=== PATIENT | male | born 1940 | race Caucasian/White ===

== ENCOUNTER 2017-02-12 13:07 | Emergency (ER) | payer OTHER ==
[2017-02-12 13:31] VITALS: RESP 20; TEMP 99.3
[2017-02-12] MEDS ORDERED: IPRATROPIUM/ALBUTEROL 3 ML DEYVIAL IH ONE ×2 (13:50→15:47)
--- NOTE | 2017-02-12 13:50 | UCPHY ---
H & P Patient Type: Established Time Seen by Provider: 02/12/17 13:18 HPI/ROS: CHIEF COMPLAINT: Low oxygen History by patient and his HISTORY OF PRESENT ILLNESS: 77-year-old male with a history of COPD who has been on home oxygen but only uses it intermittently presents today because over the past 2 weeks his oxygen saturation has been in the low 70s. His called to make an appointment with his primary care physician and he was referred here. Patient states that his oxygen will go up and down even when he is at rest and it has been as low as 71% when he wakes up in the morning. He does not sleep with his oxygen at night regularly. He notes that with this he feels dizzy as if he is going to fall down or pass out. His also notes that he seems to be confused from time to time when his oxygen is low. He says he does not feel short of breath. He says he walks on the treadmill 14 minutes a day without oxygen as recently as a few days ago. He has some intermittent upper left-sided chest pain for which she has seen his primary care physician in the past who told him that it could be his reflux or that it could be related to his shoulder rehab for his left shoulder arthritis. He denies fever , chills, nausea or vomiting. He has a chronic cough occasionally productive of white sputum and this is not changed any time recently. He quit smoking 15 years ago. He does note that he has had some bilateral leg cramping and pain and that his right leg has been swollen up in the past few weeks and this is new and unusual for him. He says he has had intermittent irregular heart beat and palpitations for many years. Patient had shoulder surgery and has had right shoulder 8 months ago and prior to that surgery he had an extensive cardiac workup and was told that he needed to follow up with the refuge worker but was not started on any medications for his heart were told that he needed stents or an angiogram. REVIEW OF SYSTEMS: As in HPI, and all other systems reviewed and are negative - Personal History Tetanus Vaccine Date: 2007 - Medical/Surgical History Hx Asthma: No Hx Chronic Respiratory Disease: Yes Hx Diabetes: No Hx Cardiac Disease: No Hx Renal Disease: No Hx Cirrhosis: No Hx Alcoholism: No Hx HIV/AIDS: No Hx Splenectomy or Spleen Trauma: No Other PMH: CHF, Hard of Hearing, HYPERTENSION. COPD. PNEUMONIA. BILATERAL KNEE REPLACEMENTS - Family History Significant Family History: No pertinent family hx - Social History Smoking Status: Former smoker - Physical Exam Exam: General Appearance: Alert, slight cyanosis, speaking full sentences. Eyes: Pupils equal and round no pallor or injection. ENT, Mouth: Mucous membranes moist. Respiratory: Normal effort, There are no retractions, lungs have scattered crackles and rhonchi. Cardiovascular: Regular rate and rhythm. Gastrointestinal: Abdomen is soft and nontender, no masses, bowel sounds normal. Neurological: Awake, alert and oriented x 3, no pronator drift, normal gait, no pronator drift Skin: Warm and dry, no rashes. Musculoskeletal: Neck is supple nontender. Extremities: full range of motion. Right leg 1+ pitting edema to the knee greater than left, DP pulses 2+ and equal bilaterally Psychiatric: Patient has normal affect, there is no agitation. Constitutional: Initial Vital Signs Temperature (C) 37.4 C 02/12/17 13:28 Heart Rate 79 02/12/17 13:28 Respiratory Rate 20 02/12/17 13:28 Blood Pressure 166/87 H 02/12/17 13:28 O2 Sat (%) 75 L 02/12/17 13:28 O2 Delivery Mode Nasal Cannula O2 (L/minute) 4 Allergies/Adverse Reactions: No Known Allergies Allergy (Verified 02/12/17 13:27) Home Medications: Medication Instructions Recorded amLODIPine BESYLATE [Norvasc 10 mg 10 mg PO DAILY 05/28/16 (*)] Ipratropium/Albuterol [Duoneb (*)] 3 ml IH Q6HRS PRN #50 deyvial 02/12/17 predniSONE 40 mg PO DAILY #5 tab 02/12/17 Medical Decision Making - Diagnostics EKG Interpretation: Atrial fibrillation at a rate in the 70s with diffuse nonspecific T-wave abnormalities, new from 2013 Imaging: Imaging Impressions Chest X-Ray 02/12/17 13:52 Impression: 1. Congestive heart failure without ivet pulmonary edema. 2. An element of airways disease is suspected. ED Course/Re-evaluation: Patient with history of oxygen-dependent COPD presents with increasing oxygen requirement and decreasing oxygen saturations at home with no clear infectious symptoms. Patient also had a recent leg pain and asymmetrical leg swelling I was concerned about pulmonary embolism. The patient had a recent cardiac workup in the past year prior to his shoulder surgery is also concerned about a cardiac cause of his exacerbation. Therefore labs, chest x-ray were obtained. Chest x-ray was concerning for CHF per the radiologist. ECG showed atrial fibrillation with rate controlled but new from prior ECG of 2013. Patient tells me that he has had atrial fibrillation diagnosed in the past but has never been put on any anticoagulation. CT angiogram of the chest to evaluate for pulmonary embolism was read as negative for PE by the radiologist and notable mostly for an enlarged heart. Patient's troponin was negative and his symptoms and Course are not consistent with acute coronary syndrome, however his BNP was somewhat elevated, though in the rodriguez zone for congestive heart failure. There is no clinical evidence of pulmonary edema to explain his worsening hypoxia. I suspect his worsening hypoxia is due to his underlying COPD which has been untreated perhaps now developing right heart failure. I recommended the patient be admitted to the hospital for his new increased oxygen requirement and further evaluation of both his lawn and cardiac status however patient refused admission. We discussed the risks of going home including but not limited to worsening, arrhythmia and . Patient states he is willing to accept these risks. He has an appointment pending with his primary care physician tomorrow. Patient was given an additional DuoNeb while in the emergency department and will be discharged home with albuterol and Atrovent for his home nebulizer machine that he already has. He is instructed to wear his oxygen 24 hours a day at 4 L. He is instructed to keep that appointment as scheduled tomorrow and get in to see a refuge worker as soon as possible. I am also recommending he start taking an aspirin a day because of his atrial fibrillation. - Data Points Laboratory Results: Laboratory Results 02/12/17 14:10 02/12/17 14:10 02/12/17 02/12/17 02/12/17 14:10 14:10 14:10 WBC 7.78 10^3/uL 10^3/uL (3.80-9.50) RBC 5.82 10^6/uL 10^6/uL (4.40-6.38) Hgb 14.5 g/dL g/dL (13.7-17.5) Hct 46.2 % % (40.0-51.0) MCV 79.4 fL L fL (81.5-99.8) MCH 24.9 pg L pg (27.9-34.1) MCHC 31.4 g/dL L g/dL (32.4-36.7) RDW 17.2 % H % (11.5-15.2) Plt Count 250 10^3/uL 10^3/uL (150-400) MPV 8.5 fL L fL (8.7-11.7) Neut % (Auto) 66.7 % % (39.3-74.2) Lymph % (Auto) 18.4 % % (15.0-45.0) [place] % (Auto) 8.4 % % (4.5-13.0) Eos % (Auto) 5.0 % % (0.6-7.6) Baso % (Auto) 1.2 % % (0.3-1.7) Nucleat RBC Rel Count 0.0 % % (0.0-0.2) Absolute Neuts (auto) 5.20 10^3/uL 10^3/uL (1.70-6.50) Absolute Lymphs (auto) 1.43 10^3/uL 10^3/uL (1.00-3.00) Absolute Monos (auto) 0.65 10^3/uL 10^3/uL (0.30-0.80) Absolute Eos (auto) 0.39 10^3/uL 10^3/uL (0.03-0.40) Absolute Basos (auto) 0.09 10^3/uL 10^3/uL (0.02-0.10) Absolute Nucleated RBC 0.00 10^3/uL 10^3/uL (0-0.01) Immature Gran % 0.3 % % (0.0-1.1) Immature Gran # 0.02 10^3/uL 10^3/uL (0.00-0.10) D-Dimer 0.91 ug/mLFEU H ug/mLFEU (0.00-0.50) Sodium 143 mEq/L mEq/L (134-144) Potassium 4.2 mEq/L mEq/L (3.5-5.2) Chloride 102 mEq/L mEq/L (97-110) Carbon Dioxide 25 mEq/l mEq/l (22-31) Anion Gap 16 mEq/L mEq/L (8-16) BUN 8 mg/dL mg/dL (7-23) Creatinine 0.7 mg/dL mg/dL (0.7-1.3) Estimated GFR > 60 Glucose 88 mg/dL mg/dL (70-100) Calcium 9.0 mg/dL mg/dL (8.5-10.4) Troponin I < 0.012 ng/mL ng/mL (0-0.034) NT-Pro-B Natriuret Pep 1210 pg/mL H pg/mL (0-450) Medications Given: Discontinued Medications Albuterol/Ipratropium (Duoneb) 3 ml IH EDNOW ONE Stop: 02/12/17 13:51 Last Admin: 02/12/17 14:15 Dose: 3 ml Prednisone (Prednisone) 40 mg PO EDNOW ONE Stop: 02/12/17 14:25 Last Admin: 02/12/17 14:43 Dose: 40 mg Departure - Departure Disposition: Home, Routine, Self-Care Clinical Impression: COPD with exacerbation, Hypoxia Atrial fibrillation Qualifiers: Atrial fibrillation type: unspecified Qualified Code(s): I48.91 - Unspecified atrial fibrillation Condition: Serious Instructions: COPD (Chronic Obstructive Pulmonary Disease) (ED) Additional Instructions: You were seen by Dr. Radha Macario today. Return for any worsening or new concerns. You must wear your oxygen at 4 L at all times! DO NOT DRIVE WITHOUT YOUR OXYGEN! Use your nebulizer treatment 4 times a day. Take prednisone as prescribed. Please follow-up with your doctor as scheduled again tomorrow and return immediately for any worsening, including difficulty breathing, worsening oxygen level, chest pain or racing heart. Also schedule follow-up with a refuge worker. Please discuss with your doctor the need to start blood thinning medication to prevent a stroke from your atrial fibrillation. In the meantime, I recommend taking an aspirin daily. Referrals: Erika Zamarripa MD [Primary Care Provider] - As per Instructions Prescriptions: Ipratropium/Albuterol [Duoneb (*)] 3 ml IH Q6HRS PRN #50 deyvial PRN Reason: Short Of Breath/Dyspnea predniSONE 40 mg PO DAILY #5 tab - PQRS PQRS Measurement: 134: Depression screening and followup, PRIME -PHQ2 (12 years and older) Over the last 2 weeks, how often have you been bothered by any of the following problems? 1. Feeling down, depressed, or hopeless? 2. Little interest or pleasure in doing things? Patient answered yes to at least 1, referred to PCP for further evaluation. . 130: Documentation of medications. Reviewed all patient medications, doses, route and frequency. . 226: Do you smoke? No. 47: 65 and older: Advanced care planning. Patient designates surrogate decision maker as spouse . Patient refused. Patient has advanced directive. 51: 18 years old and older with diagnosis of COPD, spirometry performance. Spirometry not performed; equipment not available. 52: 18 years old and older with COPD and symptoms of COPD or FEV1<60% predicted prescribed a B Agonist. Spirometry not performed; equipment not available.
[2017-02-12] MEDS ORDERED: IOPAMIDOL (ISOVUE 370) 100 ML BTL IV ONE (14:22)
[2017-02-12] MEDS ORDERED: predniSONE 20 MG TAB PO ONE (14:24)
[2017-02-12 14:29] VITALS: BP 148/87; PULSE 82; O2SAT 91
[2017-02-12 14:29] LABS: % IMMATURE GRANULYOCYTES 0.3 % (0.0-1.1); ABSOLUTE IMMATURE GRANULOCYTES 0.02 10^3/uL (0.00-0.10); ADD DIFF? NO; ADD MORPH? NO; ADD SCAN? NO; ATYPICAL LYMPHOCYTE FLAG 10 (0-99); FRAGMENT RBC FLAG 0 (0-99); HEMATOCRIT 46.2 % (40.0-51.0); HEMOGLOBIN 14.5 g/dL (13.7-17.5); LEFT SHIFT FLG 0 (0-99); LIPEMIA HEMOLYSIS FLAG 80 (0-99); MEAN CELL HEMOGLOBIN 24.9 pg (27.9-34.1); MEAN CELL HEMOGLOBIN CONCENTR. 31.4 g/dL (32.4-36.7); MEAN CELL VOLUME 79.4 fL (81.5-99.8); MEAN PLATELET VOLUME 8.5 fL (8.7-11.7); PLATELET CLUMPS FLAG 0 (0-99); PLATELET COUNT 250 10^3/uL (150-400); RED BLOOD CELL COUNT 5.82 10^6/uL (4.40-6.38); RED CELL DISTRIBUTION WIDTH 17.2 % (11.5-15.2)
--- NOTE | 2017-02-12 14:46 | CPEKG ---
Heart Rate: 77 RR Interval: 779 QRSD Interval: 108 QT Interval: 412 QTC Interval: 467 QRS [place]: 86 T Wave [place]: 91 EKG Severity - ABNORMAL ECG - EKG Impression: ATRIAL FIBRILLATION, V-RATE 61-96 EKG Impression: NONSPECIFIC T ABNORMALITIES, ANT-LAT LEADS Electronically Signed By: Radha Macario 12-Feb-2017 15:02:33
[2017-02-12 14:54] LABS: ANION GAP 16 mEq/L (8-16); CARBON DIOXIDE 25 mEq/l (22-31); CHLORIDE 102 mEq/L (97-110); CREATININE 0.7 mg/dL (0.7-1.3); GLOMERULAR FILTRATION RATE > 60; GLUCOSE 88 mg/dL (70-100); POTASSIUM 4.2 mEq/L (3.5-5.2); SODIUM 143 mEq/L (134-144)
[2017-02-12 15:16] LABS: TROPONIN I < 0.012 ng/mL (0-0.034)
[2017-02-12] MEDS ORDERED: ASPIRIN 325 MG TAB PO ONE (16:07)
== END 2017-02-12 16:47 | disposition home or self-care (01) ==
LOC: CED 13:07
DX: I50.9 Heart failure, unspecified (principal); R09.02 Hypoxemia; I48.91 Unspecified atrial fibrillation; J44.9 Chronic obstructive pulmonary disease, unspecified; M79.604 Pain in right leg; M79.605 Pain in left leg; M79.89 Other specified soft tissue disorders; I10 Essential (primary) hypertension; Z87.891 Personal history of nicotine dependence
CPT/HCPCS: 71020; 71275; 93005; G0463; Q9967; 80048-PO; 83880-PO; 84484-PO; 85025-PO; 85378-PO; 93010-PO; 99215-PO

== ENCOUNTER 2017-09-26 06:26 | Observation (INO) | payer OTHER ==
[2017-09-26] MEDS ORDERED: NS 1,000 ML IV SCH (06:29)
[2017-09-26] MEDS ORDERED: DIAZEPAM 5 MG TAB PO ONE (06:29)
[2017-09-26] MEDS ORDERED: FAMOTIDINE 20 MG TAB PO ONE (06:29)
[2017-09-26] MEDS ORDERED: ACETAMINOPHEN 325 MG TAB PO PRN (06:29)
[2017-09-26] MEDS ORDERED: ASPIRIN EC 325 MG TAB PO ONE ×2 (06:29→07:03)
[2017-09-26] MEDS ORDERED: TEMAZEPAM 15 MG CAP PO PRN (06:29)
[2017-09-26] MEDS ORDERED: NITROGLYCERIN 0.4 MG BTL SL PRN ×2 (06:29→09:13)
[2017-09-26] MEDS ORDERED: diphenhydrAMINE 25 MG CAP PO ONE ×2 (06:29→07:03)
[2017-09-26] MEDS ORDERED: CLOPIDOGREL BISULFATE 75 MG TAB PO ONE (07:00)
[2017-09-26] MEDS ORDERED: fentaNYL 100 MCG/2 ML INJ ONE (07:03)
[2017-09-26] MEDS ORDERED: LIDOCAINE 1% 300 MG/30 ML SDV ONE (07:03)
[2017-09-26] MEDS ORDERED: FAMOTIDINE 20 MG TAB ONE (07:03)
[2017-09-26] MEDS ORDERED: DIAZEPAM 5 MG TAB ONE (07:03)
[2017-09-26] MEDS ORDERED: IOPAMIDOL (ISOVUE-370) 150 ML BTL IV ONE ×2 (07:04→08:12)
[2017-09-26] MEDS ORDERED: MIDAZOLAM 2 MG/2 ML VIAL ONE (07:04)
--- NOTE | 2017-09-26 07:07 | CPEKG ---
Heart Rate: 80 RR Interval: 750 QRSD Interval: 106 QT Interval: 408 QTC Interval: 471 QRS [place]: 83 T Wave [place]: 58 EKG Severity - ABNORMAL ECG - EKG Impression: ATRIAL FIBRILLATION, V-RATE 62-88 EKG Impression: BORDERLINE T ABNORMALITIES, ANT-LAT LEADS Electronically Signed By: Christoph Mann 26-Sep-2017 18:31:08
[2017-09-26 07:10] LABS: % IMMATURE GRANULYOCYTES 0.2 % (0.0-1.1); ABSOLUTE IMMATURE GRANULOCYTES 0.02 10^3/uL (0.00-0.10); ADD DIFF? NO; ADD MORPH? NO; ADD SCAN? NO; ATYPICAL LYMPHOCYTE FLAG 10 (0-99); FRAGMENT RBC FLAG 0 (0-99); HEMATOCRIT 49.2 % (40.0-51.0); HEMOGLOBIN 15.9 g/dL (13.7-17.5); LEFT SHIFT FLG 0 (0-99); LIPEMIA HEMOLYSIS FLAG 80 (0-99); MEAN CELL HEMOGLOBIN 27.2 pg (27.9-34.1); MEAN CELL HEMOGLOBIN CONCENTR. 32.3 g/dL (32.4-36.7); MEAN CELL VOLUME 84.2 fL (81.5-99.8); MEAN PLATELET VOLUME 8.9 fL (8.7-11.7); PLATELET CLUMPS FLAG 10 (0-99); PLATELET COUNT 229 10^3/uL (150-400); RED BLOOD CELL COUNT 5.84 10^6/uL (4.40-6.38); RED CELL DISTRIBUTION WIDTH 18.6 % (11.5-15.2)
[2017-09-26 07:20] LABS: INR 1.05 (0.83-1.16); PROTIME(PATIENT) 13.6 SEC (12.0-15.0)
[2017-09-26 07:21] LABS: APTT 30.9 SEC (23.0-38.0)
[2017-09-26 07:33] LABS: ALANINE AMINOTRANSFERASE 29 IU/L (21-72); ALBUMIN 4.5 g/dL (3.5-5.0); ALKALINE PHOSPHATASE 100 IU/L (38-126); ANION GAP 12 mEq/L (8-16); ASPARTATE AMINOTRANSFERASE 21 IU/L (17-59); BILIRUBIN,TOTAL 0.6 mg/dL (0.1-1.4); CALCIUM 9.7 mg/dL (8.5-10.4); CARBON DIOXIDE 28 mEq/l (22-31); CHLORIDE 103 mEq/L (97-110); CHOLESTEROL 177 mg/dL (140-220); CHOLESTEROL/HDL RATIO 3.22 RATIO (1.00-4.97); CREATININE 0.8 mg/dL (0.7-1.3); GLOMERULAR FILTRATION RATE > 60; GLUCOSE 102 mg/dL (70-100); HIGH DENSITY LIPOPROTEIN 55 mg/dL (40-65); LDL/HDL RATIO 1.91 RATIO (1.00-3.64); LOW DENSITY LIPOPROTEIN 105 mg/dL (80-100); MAGNESIUM 1.8 mg/dL (1.6-2.3); NON-HIGH DENSITY LIPOPROTEIN 122 mg/dL (90-129); POTASSIUM 4.4 mEq/L (3.5-5.2); SODIUM 143 mEq/L (134-144); TOTAL PROTEIN 8.2 g/dL (6.3-8.2); TRIGLYCERIDE 89 mg/dL (40-150); VERY LOW DENSITY LIPOPROTEINS 17 mg/dL (8-25)
--- NOTE | 2017-09-26 07:37 | PDHPUP ---
History & Physical Update H&P update statement: This history and physical update is based on an assessment of the patient which was completed after admission or registration (within 24 hours), but prior to the surgery/procedure. H&P update: no change in patient's condition since H&P completed
--- NOTE | 2017-09-26 07:37 | PDPROPOC ---
Sedation Plan of Care Sedation Plan of Care: mental status noted, patient educated of risks, benefits , alternatives, patient can tolerate sedation ASA Classification: ASA 2 Planned drugs: fentanyl, midazolam Mallampati Score: Class 2 Mallampati Reference Image: Patient passed 3-3-2 rule?: Yes
[2017-09-26] MEDS ORDERED: BIVALIRUDIN 250 MG/5 ML VIAL IV ONE (08:09)
[2017-09-26] MEDS ORDERED: ATROPINE SULFATE 1 MG/10 ML SYR ONE (08:09)
[2017-09-26] MEDS ORDERED: ONDANSETRON 4 MG/2 ML VIAL IVP PRN (09:13)
[2017-09-26] MEDS ORDERED: ATROPINE SULFATE 1 MG/10 ML SYR IVP PRN (09:13)
[2017-09-26] MEDS ORDERED: CARBOXYMETHYLCELLULOSE 1% 0.4 ML DROPERETTE EACHEYE PRN (09:16)
--- NOTE | 2017-09-26 09:51 | CPIP ---
[f rep st] INVASIVE CARDIAC PROCEDURE DATE OF PROCEDURE: 09/26/2017 INDICATIONS FOR PROCEDURE: Positive stress test, shortness of breath. PROCEDURES: 1. Right groin sheathogram. 2. Bilateral selective coronary angiography. 3. Left heart catheterization. 4. Left ventriculogram. 5. PTCA of mid RCA utilizing 3.0 x 12 mm balloon and a 3.5 x 12 mm balloon. BRIEF HISTORY: This is a 77-year-old male with history of COPD and lung mass, who is undergoing pote ntial rotator cuff surgery. The patient had an outpatient stress test which was positive for ischemi a in the anterior distribution. The patient had been having shortness of breath, although this was t hought to be secondary to an underlying pulmonic issue. Given these factors, patient was consented f or left heart catheterization. DESCRIPTION OF PROCEDURE: After informed consent, the patient was brought to [facility], where the right gr oin was prepped and draped in sterile fashion. After injection of lidocaine, a short 6-[place] sheath was inserted in the right common femoral artery, verified endoscopically. The 6-[place] sheath was t hen upsized to a 45 cm sheath over an Amplatz superstiff wire given the tortuosity of the patient's i liac arteries. A JL4 catheter was advanced to the left coronary artery. Images of the left coronary artery revealed healthy left main. Left circumflex artery gave off a marginal 1 proximally, which w as long but thin, with mild disease in its proximal course. There was a marginal 2 artery which had acute bend, which had approximately what appeared to be 43% disease at this bend. The LAD was a long vessel which wrapped around the apex. The LAD had diffuse 20% to 30% disease throughout its course with no focal high-grade obstructions. There was a small diagonal coming off the LAD, which had only mild 30% to 40% disease proximally. After imaging, the JL4 catheter was removed. The JR4 catheter was advanced to the right coronary artery. This could not seat in the vessel proper. This was switc hed out for an AL1 catheter, which then revealed normal ostium of RCA. There was 40% to 50% proximal RCA disease, which was heavily calcified. In the mid RCA, there was another area of 80% focal disea se. This was followed by another tubular area of 50% disease. The RPDA and RPLS had diffuse 20% to 30% plaque disease. After imaging, the AL1 catheter was removed. The pigtail catheter was advanced to left ventricle. LVEDP was 15 mmHg. Left ventriculogram in the DREW position showed EF 55% with no wall motion abnormalities. No pullback gradient between the LV and the aorta. INTERVENTION REPORT: At this time, the patient was administered 600 mg of Plavix and started on Erica omax bolus and drip. Utilizing AL1 guide catheter, the right coronary artery was subsequently engage d again. A ChoICE PT wire was placed down into the RPDA. There was significant calcification with d ifficulty even advancing this wire. Initially, we tried to predilate the high-grade 80% to 90% lesio n in the mid-RCA with a 3.0 x 12 balloon; however, it would not even traverse the mid-RCA due to calc ification. We placed a GuideLiner down the vessel and again we placed this balloon into the mid-RCA and this successfully facilitated us placing the balloon in the mid-RCA. After this, we inflated the balloon to 10 atmospheres. Angiography showed improved patency of the vessel from 89% stenosis down to 40% stenosis. We then attempted to place a stent in this area with initially a 4.0 x 16 mm bare metal stent and then followed by 3.5 x 12 mm bare metal stent; however, both stents could not candace e the heavily calcified areas of the proximal mid-RCA. We decided rather than risking dissection of the vessel or stripping the stent off the vessel, that we would just perform a PTCA with a 3.5 x 12 m m balloon, which was then advanced successfully again to the area of initial stenosis. This was infl ated to 14 atmospheres and kept up for 20 seconds' time. After deflation, angiographic exam showed i mproved patency of this area with no dissection or recoil. There was no dissection of proximal vesse l either. At this time, the wire and balloon were removed. Angiographic exam showed much improved p atency of the area of initial question, which was 80% to 90% initially and now down to 20% to 30%. T here was still tubular 50% disease distally as well as 40% heavily calcified disease proximally. At this time, the guide catheter was removed. The right groin was sutured in place. The patient tolera sierra the procedure well with no complications. IMPRESSION: 1. Successful percutaneous transluminal coronary angioplasty of high-grade, heavily calcified right coronary artery mid right coronary artery disease, reducing stenosis from 80% to 90% down to 20% to 3 0%. 2. Residual proximal 40% to 50% disease and distal 50% to 60% disease, which was heavily calcified. 3. Calcified but nonobstructive left anterior descending artery disease. 4. Moderate obtuse marginal 1 calcified disease. 5. Normal ejection fraction. PLAN: The patient will be admitted overnight. If clinically stable, he will be discharged within 24 hours. He will be cleared for his rotator cuff surgery within the next few weeks. He will not have to remain on long-term Plavix, as the patient is also quite noncompliant apparently with medications . /[id number]/MODL
[2017-09-26] MEDS ORDERED: amLODIPine BESYLATE 5 MG TAB PO SCH (21:00)
[2017-09-27 05:16] LABS: % IMMATURE GRANULYOCYTES 0.3 % (0.0-1.1); ABSOLUTE IMMATURE GRANULOCYTES 0.02 10^3/uL (0.00-0.10); ADD DIFF? NO; ADD MORPH? NO; ADD SCAN? NO; ATYPICAL LYMPHOCYTE FLAG 20 (0-99); FRAGMENT RBC FLAG 0 (0-99); HEMATOCRIT 46.2 % (40.0-51.0); HEMOGLOBIN 14.4 g/dL (13.7-17.5); LEFT SHIFT FLG 0 (0-99); LIPEMIA HEMOLYSIS FLAG 80 (0-99); MEAN CELL HEMOGLOBIN 26.9 pg (27.9-34.1); MEAN CELL HEMOGLOBIN CONCENTR. 31.2 g/dL (32.4-36.7); MEAN CELL VOLUME 86.2 fL (81.5-99.8); MEAN PLATELET VOLUME 9.2 fL (8.7-11.7); PLATELET CLUMPS FLAG 0 (0-99); PLATELET COUNT 194 10^3/uL (150-400); RED BLOOD CELL COUNT 5.36 10^6/uL (4.40-6.38); RED CELL DISTRIBUTION WIDTH 18.2 % (11.5-15.2)
[2017-09-27 05:38] LABS: ANION GAP 13 mEq/L (8-16); BILIRUBIN,TOTAL 0.3 mg/dL (0.1-1.4); CARBON DIOXIDE 27 mEq/l (22-31); CHLORIDE 102 mEq/L (97-110); CREATININE 0.7 mg/dL (0.7-1.3); GLOMERULAR FILTRATION RATE > 60; GLUCOSE 83 mg/dL (70-100); POTASSIUM 4.1 mEq/L (3.5-5.2); SODIUM 142 mEq/L (134-144)
[2017-09-27 07:13] VITALS: PULSE 79; RESP 16; TEMP 97.4; O2SAT 91
--- NOTE | 2017-09-27 07:36 | PDCARPN ---
Cardiology Progress Note Chief Complaint: abnormal stress test/SOB Assessment/Plan: Assessment: CAD COPD s/p PTCA to RCA Plan: 09/27/17 07:35 Doing well Plavix/ASA for two weeks, can then have ortho surgery f/u in 2-3 weeks Subjective: no complaints Reviewed/Discussed With: other (RN) Time Spent With Patient: 25 min Objective: Vital Signs (8 Hrs) Temp Pulse Resp BP Pulse Ox 09/27/17 07:10 36.3 C 79 16 161/87 H 91 L 09/27/17 04:00 36.8 C 63 18 139/86 H 93 Intake/Output (24 Hrs) 09/26/17 09/27/17 09/28/17 05:59 05:59 05:59 Intake Total 1200 Output Total 900 Balance 300 Intake: Oral (ml) 850 IV Intake (ml) 350 Output: Urine (ml) 900 Urinal 900 Other: Weight 83.9 kg Number of Voids Toilet 2 Urinal 2 Result Diagrams: 09/27/17 04:15 09/27/17 04:15 - Physical Exam Constitutional: healthy appearing Eyes: PERRL Ears, Nose, Mouth, Throat: moist mucous membranes Cardiovascular: irregularly irregular Respiratory: clear to auscultate bilat, no wheezes Gastrointestinal: no tenderness Skin: warm Musculoskeletal: no muscular tenderness Neurologic: AAOx3 Psychiatric: cooperative ICD10 Worksheet Patient Problems: Problems Problem Status Onset Arthritis of right shoulder region Acute
[2017-09-27] MEDS ORDERED: ASPIRIN EC 325 MG TAB PO SCH (09:00)
[2017-09-27] MEDS ORDERED: CLOPIDOGREL BISULFATE 75 MG TAB PO SCH (09:00)
[2017-09-27] MEDS ORDERED: MULTIVITAMINS 1 EACH TAB PO SCH (09:00)
[2017-09-27] MEDS ORDERED: ASPIRIN 81 MG CHEWABLE TAB PO SCH (09:00)
[2017-09-27] MEDS ORDERED: amLODIPine BESYLATE 5 MG TAB PO ONE (10:15)
[2017-09-27 10:42] VITALS: BP 145/91
--- NOTE | 2017-09-27 16:09 | ASDISCHSUM ---
Discharge Information Plan Status:Home with No Needs Medically Cleared to Leave:09/26/2017 Discharge Date:09/27/2017 12:10 PM CM D/C Disposition: ADT D/C Disposition:Home, Routine, Self-Care Projected Discharge Date:09/27/2017 12:00 AM Transportation at D/C: Discharge Delay Reason: Follow-Up Date:09/27/2017 12:00 AM Discharge Slot: Final Diagnosis: Placement Information Patient Contact Information Contact Name:CIELO Relationship: Address:[address] Work Phone: City:[facility] Phone: State/Zip Code:[place] [address] Email: Financial Information Financial Class:Medicare Advantage Plans Primary Plan Desc:[facility] ADVANTAGE PLANS Primary Plan Number:[id number] Secondary Plan Desc: Secondary Plan Number: Assessment Information Intervention Information Intervention Type:*CHING-Signed Date of Service:09/27/2017 09:39 AM Patient Type:Observation Staff Member:Myrna Membreno Hours: Discipline: Severity: Comment:
--- NOTE | 2017-09-27 17:23 | GDS ---
[f rep st] DISCHARGE SUMMARY DISCHARGE DIAGNOSES: 1. New-onset angina with CCS Class 3 angina with abnormal nuclear stress test. 2. Untreated dyslipidemia. 3. Hypertension. 4. Chronic obstructive pulmonary disease with chronic hypoxic respiratory failure, on continuous oxy gen. 5. Pulmonary hypertension. 6. Permanent atrial fibrillation. PROCEDURES: On 09/26/2017, left heart catheterization, left ventriculogram and percutaneous translum inal coronary angioplasty of mid right coronary artery using a 3.0 x 12 mm balloon and a 3.5 x 12 mm balloon. BRIEF HISTORY: Please see dictated H and P from our office for complete details. In brief, the nilo ent is a 77-year-old male who was recently seen for chest pressure. He proceeded to nuclear stress t esting, which showed [id number] anterior apical defect with mild reversibility. HOSPITAL COURSE BY PROBLEM: 1. Abnormal nuclear stress test with CCS class 3 anginal symptoms: He proceeded to left heart elba terization. This showed a normal left main. The left circumflex gave rise to an obtuse marginal pro ximally. The 2nd obtuse marginal was long and had a 43% lesion present within the body of the vessel . The LAD had diffuse 20% to 30% disease throughout its course. There was a small diagonal with 30% to 40% disease proximally. The right coronary artery had a 40% to 50% proximal stenosis, which was heavily calcified. The mid RCA had a focal 80% disease. This was followed by another tubular area o f 50%. RPDA and RPLS had 20% to 30% plaque disease. LVEDP measured 15 mmHg. LVEF was 55% with no w all motion abnormalities. Due to the significant calcification present in the LAD, only PTCA was per formed. There was an unsuccessful attempt to pass bare metal stents. 2. Dyslipidemia: Patient's LDL is 105, total cholesterol 177, triglycerides 89, and HDL of 55. He is advised on statin therapy for secondary prevention. He would like to think about this, so no pres cription was given at time of discharge. 3. Hypertension: Blood pressures have been elevated through his hospital course. He has previously been on a higher dose of amlodipine and is agreeable to increase his dose. He will be placed on 10 mg daily of amlodipine. 4. Preop: Patient would like to schedule a shoulder surgery. He may do so after 3 weeks from his P TCA. PHYSICAL EXAMINATION: VITAL SIGNS: On day of discharge, blood pressure 145/91, heart rate 79, respi rations 16, O2 saturation 91% on 4 L/minute, and temp of 97.4 degrees Fahrenheit. GENERAL: He is a pleasant male in no apparent distress. HEENT: Head normocephalic and atraumatic. HEART: Regular r ate and rhythm. LUNGS: Diminished. SKIN: Right groin site without ecchymosis or bruit. EXTREMITI ES: There are trace PT pulses. LABORATORY DATA: BMP: Sodium 142, potassium 4.1, chloride 102, CO2 27, BUN 15, creatinine 0.7, gluc ose 83. CBC: WBC 7.72, hemoglobin 14.4, hematocrit 46.2, platelet count 194. Telemetry reveals permanent AFib that appears rate controlled. RESULTS PENDING: None. DIET: Cardiac. ACTIVITY: Groin precautions were reviewed. Patient is also advised to consider cardiac rehab. DISCHARGE MEDICATIONS: Please see med reconciliation. He will be continued on his Celluvisc and mul tivitamin. His amlodipine dose has been increased to 10 mg p.o. at h.s. he has been given a prescri ption for nitroglycerin 0.4 mg sublingual p.r.n. Has a new prescription for Plavix 75 mg p.o. daily. He should be continued on aspirin 81 mg p.o. daily. DISCHARGE INSTRUCTIONS: 1. Discharged to home with groin precautions. 2. Followup in 1-2 weeks in office. /[id number]/MODL
== END 2017-09-27 12:10 | disposition home or self-care (01) ==
LOC: FCATH 06:26 → F2W 09:13 → INTOOBSV 09:56 → OBSVTOIN 09:56 → F2W 12:51
PROVIDERS: ADMIT Internal Medicine Cardiovascular Disease; ATTEND Internal Medicine Cardiovascular Disease
DX: I25.119 Atherosclerotic heart disease of native coronary artery with unspecified angina pectoris (principal); E78.5 Hyperlipidemia, unspecified; I10 Essential (primary) hypertension; J44.9 Chronic obstructive pulmonary disease, unspecified; J96.11 Chronic respiratory failure with hypoxia; I27.20 Pulmonary hypertension, unspecified; I48.2 Chronic atrial fibrillation; Z87.891 Personal history of nicotine dependence
CPT/HCPCS: 92920; 93005; 93458; C1725; C1769; C1876; C1887; G0378; J0583; J1644; J2250; J3010; Q9967; J0461

== ENCOUNTER 2017-11-26 05:46 | Inpatient (IN) | payer OTHER ==
--- NOTE | 2017-11-20 14:01 | GHP ---
[f rep st] HISTORY AND PHYSICAL CHIEF COMPLAINT: Left shoulder pain. HISTORY OF PRESENT ILLNESS: The patient is a 77-year-old male with a long history of left shoulder pain, worsening with time. X-rays reveal [id number] osteoarthritic changes within the left shoulder. ALLERGIES: He has no drug allergies. CURRENT MEDICATIONS: Amlodipine, clopidogrel, furosemide, ipratropium, ProAir. PAST MEDICAL HISTORY: Prior medical problems include asthma, arthritis, gout. PAST SURGICAL HISTORY: Includes a right shoulder hemiarthroplasty and bilateral knee surgery. SOCIAL HISTORY: He is a former smoker. Moderate alcohol intake. PHYSICAL EXAMINATION: HEENT: Patient's pupils are equal, round, and reactive to light. CHEST: Clear to auscultation. HEART: Regular rate and rhythm. ABDOMEN: Soft and nontender. EXTREMITIES: He has limited range of motion to the left shoulder with crepitus noted through that limited range of motion. IMAGING: X-ray exam reveals [id number] osteoarthritic changes of the glenohumeral joint. ASSESSMENT AND PLAN: The patient is status post left shoulder glenohumeral joint arthritis. Plan was to take him to the operating room to undergo a left shoulder hemiarthroplasty. /[id number]/MODL MTDD
[2017-11-26] MEDS ORDERED: PREGABALIN 150 MG CAP PO ONE (06:00)
[2017-11-26] MEDS ORDERED: ceFAZolin 2 GM/SWFI 2 GM/20 ML SYR IVP ONE (06:00)
[2017-11-26] MEDS ORDERED: ROPIVACAINE 0.2% 80 MG, EPINEPHrine 0.2 MG, KETOROLAC TROMETHAMINE 30 MG, morphINE 10 M... IU ONE (06:00)
[2017-11-26] MEDS ORDERED: ACETAMINOPHEN 500 MG TAB PO ONE (06:00)
[2017-11-26] MEDS ORDERED: TRANEXAMIC ACID 3,000 MG in NS 50 ML IRR ONE (06:00)
[2017-11-26] MEDS ORDERED: LIDOCAINE 1% 2 ML INJ ID PRN (06:22)
[2017-11-26] MEDS ORDERED: LR 1,000 ML IV ONE (06:22)
[2017-11-26 06:53] LABS: PLATELET COUNT 194 10^3/uL (150-400)
[2017-11-26] MEDS ORDERED: BUPIVACAINE/EPI 0.5% 30 ML SDV ONE (07:02)
[2017-11-26] MEDS ORDERED: POLYMYXIN B SULFATE 500,000 UNIT/10 ML SYR IRR ONE (07:03)
[2017-11-26] MEDS ORDERED: BACITRACIN 50,000 UNITS/10 ML SYR IRR ONE (07:03)
--- NOTE | 2017-11-26 07:04 | PDANEPAE ---
<Sharif Ocampo - Last Filed: 11/26/17 07:00> ANE History of Present Illness Severe shoulder pain ANE Past Medical History - Cardiovascular History Hx Hypertension: Yes Hx Arrhythmias: Yes Hx Chest Pain: No Hx Coronary Artery / Peripheral Vascular Disease: Yes Hx CHF / Valvular Disease: No Hx Palpitations: No Cardiovascular History Comment: ATRIAL FIB PERMANENT. pcp monitors bp meds - Pulmonary History Hx COPD: Yes Hx Asthma/Reactive Airway Disease: No Hx Recent Upper Respiratory Infection: No Hx Oxygen in Use at Home: Yes O2 in Use at Home (L/minute): O2 3-4L 24 HRS/DAY Hx Sleep Apnea: No Sleep Apnea Screening Result - Last Documented: Positive Pulmonary History Comment: pineda triggers no dx - Neurologic History Hx Cerebrovascular Accident: No Hx Seizures: No Hx Dementia: No - Endocrine History Hx Diabetes: No - Renal History Hx Renal Disorders: No - Liver History Hx Hepatic Disorders: No - Neurological & Psychiatric Hx Hx Neurological and Psychiatric Disorders: Yes Neurological / Psychiatric History Comment: depression - Cancer History Hx Cancer: No - Congenital Disorder History Hx Congenital Disorders: No - GI History Hx Gastrointestinal Disorders: Yes Gastrointestinal History Comment: GERD - Other Health History Other Health History: none - Chronic Pain History Chronic Pain: No - Surgical History Prior Surgeries: CARDIAC CATH 09/2017. R SHOULDER REPLACEMENT. bilateral tka's ANE Review of Systems Review of Systems: - Exercise capacity METS (RN): 4 METS ANE Patient History - Allergies Allergies/Adverse Reactions: No Known Allergies Allergy (Verified 02/12/17 13:27) - Home Medications Home Medications: Carboxymethylcellulose 1% [Refresh Celluvisc (*)] 1 drops EACHEYE DAILY PRN [Last Taken 11/26/17 05:00] Multivitamins [Multivitamin (*)] 1 each PO DAILY 09/26/17 [Last Taken 11/25/17] - NPO status NPO Since - Liquids (Date): 11/25/17 NPO Since - Liquids (Time): 23:30 NPO Since - Solids (Date): 11/25/17 NPO Since - Solids (Time): 23:30 - Anes Hx Anes Hx: no prior problems - Smoking Hx Smoking Status: Former smoker - Family Anes Hx Family Hx Anesthesia Complications: none ANE Labs/Vital Signs - Labs Result Diagrams: 11/26/17 06:35 - Vital Signs Blood Pressure: 130/61 Heart Rate: 81 Respiratory Rate: 16 O2 Sat (%): 93 Height: 170.18 cm Weight: 83.915 kg ANE Anesthesia Plan Anesthesia Plan: GA w LMA Regional Anesthesia: interscalene BP CHRISTOPHER <Harsh Young - Last Filed: 11/26/17 09:37> ANE Review of Systems Review of Systems: ANE Labs/Vital Signs - Labs Result Diagrams: 11/26/17 06:35 ANE Physical Exam - Airway Neck exam: decreased ROM Mallampati Score: Class 4 Mouth exam: normal dental/mouth exam - Pulmonary Pulmonary: no respiratory distress - Cardiovascular Cardiovascular: irregularly irregular - ASA Status ASA Status: IV ANE Anesthesia Plan Anesthesia Plan: general endotracheal anesthesia, GA with mask Regional Anesthesia: interscalene BP CHRISTOPHER
[2017-11-26] MEDS ORDERED: ROPIVACAINE HCL 150 MG/30 ML INJ ONE (07:17)
[2017-11-26] MEDS ORDERED: TRANEXAMIC ACID 3,000 MG/50 ML BAG IRR ONE (07:18)
[2017-11-26] MEDS ORDERED: fentaNYL 100 MCG/2 ML INJ ONE (07:20)
[2017-11-26] MEDS ORDERED: PROPOFOL 200 MG/20 ML VIAL ONE (07:21)
--- NOTE | 2017-11-26 07:28 | PDHPUP ---
History & Physical Update H&P update statement: This history and physical update is based on an assessment of the patient which was completed after admission or registration (within 24 hours), but prior to the surgery/procedure. H&P update: H&P reviewed & patient examined, no change in patient's condition since H&P completed
[2017-11-26] MEDS ORDERED: CALCIUM CHLORIDE 1 GM/10 ML INJ ONE (07:35)
[2017-11-26] MEDS ORDERED: THROMBIN (BOVINE) 5,000 UNIT VIAL TP ONE (07:35)
[2017-11-26] MEDS ORDERED: PHENYLEPHRINE HCL 100 MCG/ML SYR ONE (08:15)
--- NOTE | 2017-11-26 08:53 | PDANEPAE ---
ANE History of Present Illness Severe shoulder pain ANE Past Medical History - Cardiovascular History Hx Hypertension: Yes Hx Arrhythmias: Yes Hx Chest Pain: No Hx Coronary Artery / Peripheral Vascular Disease: Yes Hx CHF / Valvular Disease: No Hx Palpitations: No Cardiovascular History Comment: ATRIAL FIB PERMANENT. pcp monitors bp meds - Pulmonary History Hx COPD: Yes Hx Asthma/Reactive Airway Disease: No Hx Recent Upper Respiratory Infection: No Hx Oxygen in Use at Home: Yes O2 in Use at Home (L/minute): O2 3-4L 24 HRS/DAY Hx Sleep Apnea: No Sleep Apnea Screening Result - Last Documented: Positive Pulmonary History Comment: pineda triggers no dx - Neurologic History Hx Cerebrovascular Accident: No Hx Seizures: No Hx Dementia: No - Endocrine History Hx Diabetes: No - Renal History Hx Renal Disorders: No - Liver History Hx Hepatic Disorders: No - Neurological & Psychiatric Hx Hx Neurological and Psychiatric Disorders: Yes Neurological / Psychiatric History Comment: depression - Cancer History Hx Cancer: No - Congenital Disorder History Hx Congenital Disorders: No - GI History Hx Gastrointestinal Disorders: Yes Gastrointestinal History Comment: GERD - Other Health History Other Health History: none - Chronic Pain History Chronic Pain: No - Surgical History Prior Surgeries: CARDIAC CATH 09/2017. R SHOULDER REPLACEMENT. bilateral tka's ANE Review of Systems Review of Systems: - Exercise capacity METS (RN): 2 METS ANE Patient History - Allergies Allergies/Adverse Reactions: No Known Allergies Allergy (Verified 02/12/17 13:27) - Home Medications Home Medications: Carboxymethylcellulose 1% [Refresh Celluvisc (*)] 1 drops EACHEYE DAILY PRN [Last Taken 11/26/17 05:00] Multivitamins [Multivitamin (*)] 1 each PO DAILY 09/26/17 [Last Taken 11/25/17] - NPO status NPO Since - Liquids (Date): 11/25/17 NPO Since - Liquids (Time): 23:30 NPO Since - Solids (Date): 11/25/17 NPO Since - Solids (Time): 23:30 - Smoking Hx Smoking Status: Former smoker - Family Anes Hx Family Hx Anesthesia Complications: none ANE Labs/Vital Signs - Labs Result Diagrams: 11/26/17 06:35 - Vital Signs Blood Pressure: 130/61 Heart Rate: 81 Respiratory Rate: 16 O2 Sat (%): 93 Height: 170.18 cm Weight: 83.915 kg ANE Physical Exam - Airway Neck exam: decreased ROM Mallampati Score: Class 2 Mouth exam: normal dental/mouth exam - Pulmonary Pulmonary: no respiratory distress - Cardiovascular Cardiovascular: irregularly irregular - ASA Status ASA Status: IV ANE Anesthesia Plan Anesthesia Plan: general endotracheal anesthesia (DNA status discussed. Pt and desire full code in event of cardiac arrest.) Regional Anesthesia: supraclavicular BP NB
[2017-11-26] MEDS ORDERED: ONDANSETRON 4 MG/2 ML VIAL IVP PRN ×2 (08:54→10:17)
[2017-11-26] MEDS ORDERED: ALBUTEROL 3 ML DEYVIAL IH PRN (08:54)
[2017-11-26] MEDS ORDERED: fentaNYL 100 MCG/2 ML INJ IVP PRN (08:54)
[2017-11-26] MEDS ORDERED: HYDROmorphONE/DILAUDID 1 MG/ML INJ IVP PRN (08:54)
[2017-11-26] MEDS ORDERED: NALOXONE HCL 0.4 MG/ML INJ IVP PRN (08:54)
[2017-11-26] MEDS ORDERED: ONDANSETRON 4 MG/2 ML VIAL ONE (08:57)
[2017-11-26] MEDS ORDERED: DEXAMETHASONE 4 MG/ML VIAL ONE (08:57)
[2017-11-26] MEDS ORDERED: SUGAMMADEX SODIUM 200 MG/2 ML VIAL IVP ONE (09:22)
[2017-11-26] MEDS ORDERED: OXYCODONE/APAP 5/325 TAB PO PRN (10:17)
--- NOTE | 2017-11-26 10:17 | POSTOPPROG ---
Post Op Note Date of Operation: 11/26/17 Surgeon: Lisa Mccain Stress Analyst: roxana Anesthesiologist: elizabeth Anesthesia: GET(General Endotracheal), Other (Specify) Pre-op Diagnosis: l shoulder oa Procedure: l shoulder liu-arthroplasty Inf/Abcess present in the surg proc area at time of surgery?: No Depth: Deep Incisional (Fascial) EBL: 100-500
[2017-11-26] MEDS ORDERED: CARBOXYMETHYLCELLULOSE 1% 0.4 ML DROPERETTE EACHEYE PRN (10:21)
[2017-11-26] MEDS ORDERED: NITROGLYCERIN 0.4 MG BTL SL PRN (10:21)
[2017-11-26] MEDS ORDERED: TAPENTADOL HCL 50 MG TAB PO PRN (10:21)
--- NOTE | 2017-11-26 10:28 | POSTANESTH ---
Post Anesthetic Evaluation Cardiovascular Status: Similar to Pre-Op Cond Respiratory Status: Similar to Pre-op Cond. Level of Consciousness/Mental Status: Alert and Oriented Pain Control: Adequate, Prn Tx Ordered Nausea/Vomiting Control: Adequate, Prn Tx Ordered Complications Possibly Related to Anesthesia: None Noted
--- NOTE | 2017-11-26 14:01 | GCON ---
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 HISTORY OF PRESENTING ILLNESS: The patient is an extremely pleasant 77-year-old white male with past medical history including chronic obstructive pulmonary disease for which he is oxygen dependent. Goldy gonzalez also has arthritis and gout. He was examined postoperatively after a left shoulder arthroplasty. In the recovery room, he was found to be somewhat hypoxemic, and he was admitted to the intensive car e unit. In discussion with the patient, he states he is supposed to be on oxygen /. He denies an y cough or productive sputum. He does admit to being somewhat breathless, especially when he drifts off to sleep. He denies any chest pain, pleuritic-type chest pain, or angina equivalent. There is n o fever or night sweats. REVIEW OF SYSTEMS: 10-point review of systems was performed and is negative, with the exception of w hat is found in the HPI. PAST MEDICAL HISTORY: Significant for chronic obstructive pulmonary disease, arthritis, and gout. PAST SURGICAL HISTORY: He has had a right shoulder hemiarthroplasty and bilateral knee surgery. ALLERGIES: No known allergies to medications. SOCIAL HISTORY: Previous heavy smoker, none for several years. No significant alcohol use. He is m arried, has excellent family support. FAMILY HISTORY: Noncontributory. PHYSICAL EXAM: VITAL SIGNS: Blood pressure is 131/77, pulse is 77, respirations are 14, temperature 36.3, oxygen saturation 92% on simple mask at 10 L. GENERAL: He is a well-developed, well-nourishe d, elderly white male who is resting comfortably in no acute distress. HEENT: Eyes are PERRLA, EOMI . Throat shows no erythema or tonsillar hypertrophy. NECK: Supple. There is no cervical adenopath y. HEART: Regular rate and rhythm without murmurs, rubs, or gallops. LUNGS: Diminished breath nick nds. Significant prolongation of expiratory phase, but no wheeze. ABDOMEN: Soft, nontender. Bowel sounds present in all 4 quadrants. EXTREMITIES: No clubbing, cyanosis, or edema. LABORATORIES: White count 6.9, hemoglobin 13, hematocrit 42, platelet count is 194. IMPRESSION: 1. History of chronic obstructive pulmonary disease. 2. History of chronic oxygen use. 3. Postoperative hypoxemia. 4. Status post left hemiarthroplasty. RECOMMENDATIONS: 1. Follow oxygen saturations closely. 2. Increase supplemental oxygen as needed. 3. Will try patient on BiPAP. 4. Will obtain a chest x-ray. 5. Adequate pain control. 6. DVT and PE prophylaxis. 7. Stress ulcer prophylaxis. /[id number]/MODL
--- NOTE | 2017-11-26 14:11 | GOP ---
[f rep st] OPERATIVE REPORT DATE OF OPERATION: 11/26/2017 SURGEON: Lisa Mccain MD CUSTOM CAR BUILDER: Pierce Bai, RAMONA, LSA, whose presence was medically necessary. ANESTHESIA: By endotracheal intubation plus scalene nerve block per surgeon's request. PREOPERATIVE DIAGNOSIS: Left shoulder osteoarthritis. POSTOPERATIVE DIAGNOSIS: Left shoulder osteoarthritis. PROCEDURE PERFORMED: Left shoulder hemiarthroplasty with soft tissue interposition graft. FINDINGS: INDICATIONS: This is a 77-year-old male with a several year history of left shoulder pain worsening with use and with time as well as loss of range of motion. X-ray exam reveals [id number] osteoarth ritic changes with significant spurring to the glenohumeral joint. He wishes to have surgery in orde r to resolve the problem. DESCRIPTION OF PROCEDURE: Patient brought to the operating room after the left side had been identif ied as the correct side by the patient, nurse and physician. Once in the operating room, he was given a scalene block on the left side and then placed under general anesthesia using endotracheal intubat ion. Once asleep, he was placed in a beach chair position with the left upper extremity sterilely pr epped and draped in the usual fashion using GSI solution. Once prepped and draped, a linear incision was made starting at the axillary crease and headed toward the coracoid process with sharp dissection carried down through the skin and subcutaneous layers, with bleeding controlled using electrocautery . The interval between the deltoid and the pectoralis was divided with the cephalic vein carried wit h the deltoid. Deeper dissection was carried down through the fascial layers with the coracobrachiali s retracted medially, the biceps tendon identified and an incision made approximately 1 cm medial to the biceps tendon with sharp dissection carried down directly onto the bone. The subscapularis was t hen divided into capsular muscular layers with stay sutures placed in each in preparation for the sof t tissue graft. Attention was then turned to the humeral head. The humerus was placed in extension a nd external rotation in order to gain access. A 30 degree cutting guide was put into place. An oscil lating saw was used to cut the superior portion of the humeral head. Canal finder was then placed in to the humeral canal and sequential broaches were placed up to a size 15 which was noted to fit secur michelle. A 15 x 12 body was then put into place and noted to fit securely. The trial was left in place while attention was turned to the glenoid. The head was then placed into neutral rotation, subluxed p osteriorly with glenoid retractors placed anteriorly and posteriorly. The superior and anterior labr um were removed in order to gain further access to the glenoid. The abundant amount of osteophytic sp urs around the glenoid were also removed in order to get a truer idea of the size of the actual gleno id itself. A guide was placed in the center of the glenoid in order to have a K-wire placed within th e center of the glenoid. A reamer was placed over the guidewire in order to ream the bone down to ble eding surface. Once completed, the capsular layer of the subscapularis was then pulled over on top o f the glenoid and sewed to the back of the capsule in order to create a soft tissue interposition gra ft. Once in position, multiple trials were used on the head, noted that a 50 x 22 eccentric head gave good coverage of the cut surface of the bone as well as giving good tension into the musculature. Th erefore, the humeral trial was removed and a 15 stem with a 12 standard body was put into place, note d to fit securely and then a 50 x 22 eccentric head from [employer] was put into place and noted to fit securely. The shoulder was able to be reduced and was put into neutral rotation. A joint cocktail wa s injected in the posterior portion of the capsule and periosteum around the glenoid and the proximal humerus. Tranexamic acid was placed within the intra-articular portion of the glenoid as well as pl asma gel. Then, #2 FiberWire was then woven into the subscapularis and the rotator cuff interval bet ween the supraspinatus and subscapularis in order to close the dynamic portion of the musculature. On ce completed, 0 Vicryl suture was used to close the deltopectoral interval; 0 Vicryl and 2-0 Vicryl s uture used for the subcutaneous layers and a 3-0 V-Loc suture in a running subcuticular stitch was us ed for the skin. Then, 30 cc of Marcaine was infused around the actual incision itself and the wound was then dressed with Steri-Strips, Xeroform, 4 x 4, and Tegaderm. He was completely undraped in e operating room, had a shoulder immobilizer placed on the left upper extremity. He was then woken u p, extubated, transferred onto a bed, and sent to recovery room in good condition. /[id number]/MODL
[2017-11-26] MEDS: KETOROLAC 15 MG/1 ML SDV IVP SCH ×2 (14:42→18:49)
[2017-11-26] MEDS: ACETAMINOPHEN 325 MG TAB PO SCH ×2 (14:45→18:49)
[2017-11-26] MEDS: traMADol 50 MG TAB PO SCH ×2 (14:47→18:48)
[2017-11-26] MEDS ORDERED: FUROSEMIDE 40 MG/4 ML VIAL IVP ONE (15:30)
[2017-11-26] MEDS: ceFAZolin 2 GM/DEXTROSE 100 ML IV SCH (16:10)
[2017-11-26] MEDS ORDERED: amLODIPine BESYLATE 5 MG TAB PO SCH (21:00)
[2017-11-27] MEDS: ACETAMINOPHEN 325 MG TAB PO SCH ×2 (00:04→06:13)
[2017-11-27] MEDS: KETOROLAC 15 MG/1 ML SDV IVP SCH ×2 (00:04→06:11)
[2017-11-27] MEDS: traMADol 50 MG TAB PO SCH ×2 (00:04→06:13)
[2017-11-27] MEDS: ceFAZolin 2 GM/DEXTROSE 100 ML IV SCH (00:05)
[2017-11-27 00:19] VITALS: TEMP 97.5
[2017-11-27] MEDS ORDERED: ASPIRIN 81 MG CHEWABLE TAB PO SCH (09:00)
[2017-11-27 09:05] VITALS: BP 115/50; PULSE 55; RESP 15; O2SAT 93
[2017-11-27] MEDS ORDERED: HYDROCODONE/APAP 5/325 TAB PO PRN (09:38)
--- NOTE | 2017-11-27 09:38 | PDINTPN ---
[facility] Progress Note Assessment/Plan: Assessment/plan: * Status post left shoulder hemiarthroplasty * Severe oxygen-dependent chronic obstructive pulmonary disease * Acute respiratory failure-secondary to COPD. This is improved he is back to his baseline oxygen requirements. * Possible obstructive sleep apnea-I discussed this at length with patient and recommended formal sleep study as outpatient. Patient states he has absolutely no intention of ever wearing a CPAP mask, so will not pursue this at this time. * Pain-well controlled * Nutrition-adequate * Disposition-stable for transfer to medical surgical floor, and possibly discharge home Subjective: Sitting up in chair. Pain is well controlled. Good appetite. Objective: Vital Signs Temp Pulse Resp BP Pulse Ox 36.4 C 55 L 15 115/50 L 93 11/27/17 00:00 11/27/17 08:00 11/27/17 08:00 11/27/17 08:00 11/27/17 08:00 Laboratory Results 11/26/17 06:35 11/26/17 11/27/17 11/28/17 05:59 05:59 05:59 Intake Total 2200 Output Total 1450 600 Balance 750 -600 - Time Spent With Patient Time Spent With Patient: 35 min of time spent with patient over half involved with coordination of care or counseling Physical Exam - Physical Exam General Appearance: alert, no apparent distress EENT: PERRL/EOMI, normal ENT inspection Neck: non-tender Respiratory: prolonged expiration, No respiratory distress, No accessory muscle use, No wheezing Cardiac/Chest: normal peripheral pulses, regular rate, rhythm, systolic murmur Abdomen: normal bowel sounds, non-tender, soft Male Genitalia: deferred Rectal: deferred Skin: normal color, warm/dry Extremities: normal range of motion, non-tender, normal inspection, normal capillary refill Neuro/Psych: alert, normal mood/affect, oriented x 3 ICD10 Worksheet Patient Problems: Problems Problem Status Onset Angina effort Acute Arthritis of right shoulder region Acute
--- NOTE | 2017-11-27 09:38 | SOAPPROG ---
SOAP Progress Note Assessment/Plan: Assessment: pod #1 Plan: - can d/c home, he has home O2 he can use - will do norco for pain control 11/27/17 09:37 Subjective: Doing well, pain controlled, feels ready to d/c Objective: Vital Signs Temp Pulse Resp BP Pulse Ox 36.4 C 55 L 15 115/50 L 93 11/27/17 00:00 11/27/17 08:00 11/27/17 08:00 11/27/17 08:00 11/27/17 08:00 Laboratory Results 11/26/17 06:35 11/26/17 11/27/17 11/28/17 05:59 05:59 05:59 Intake Total 2200 Output Total 1450 600 Balance 750 -600 dressing cdi, compartments soft, nvi, - Time Spent With Patient Time Spent With Patient: 10 - Pending Discharge Pending Discharge Within 24 Hours: Yes Pending Discharge Within 48 Hours: No Pending Discharge Date: 11/28/17 Pending Discharge Time: 11:00 ICD10 Worksheet Patient Problems: Problems Problem Status Onset Angina effort Acute Arthritis of right shoulder region Acute
--- NOTE | 2017-11-27 09:43 | ASMTCMCOM ---
CM Note CM Note Notes: Patient is POD # L shoulder hemiarthroplasty. He has a history of COPD and uses O2 at home. He lives with his and is normally independent. No therapies have been ordered, and I assume he will discharge with no needs. Case Management available if that changes. Date Signed: 11/27/2017 09:43 AM Electronically Signed By:Mare Benz RN
--- NOTE | 2017-11-27 09:45 | PDIAF ---
- Diagnosis Code Status: Full Code - Medication Management Discharge Medications: Medications to Continue on Transfer Multivitamins [Multivitamin (*)] 1 each PO DAILY 09/26/17 [Last Taken 11/25/17] Acetaminophen [Tylenol 325mg (*)] 650 mg PO QID PRN tab 09/27/17 [Last Taken ] Aspirin [Aspirin 81mg (*)] 81 mg PO DAILY tab.chew 09/27/17 [Last Taken ] Nitroglycerin [Nitrostat 0.4 mg (*)] 0.4 mg SL PRN PRN #1 btl 09/27/17 [Last Taken Unknown] Tetrahydrozoline 0.05% [Visine (*)] 1 drop EACHEYE DAILY PRN 11/26/17 [Last Taken 11/26/17] amLODIPine BESYLATE [Norvasc 10 mg (*)] 10 mg PO HS 11/26/17 [Last Taken ] Carboxymethylcellulose 1% [Refresh Celluvisc (*)] 1 drop EACHEYE DAILY PRN droperette 11/27/17 [Last Taken Unknown] Hydrocodone/APAP 5/325 [[place] 5/325 (*)] 1 tab PO Q4HRS PRN #60 tab 11/27/17 [ Last Taken Unknown] traMADol [Ultram 50 mg (*)] 50 mg PO Q6HRS 14 Days #60 tab 11/27/17 [Last Taken Unknown] Discharge Medications: Refer to the Discharge Home Medication list for PRN reason. PICC Care - Routine: N/A - Orders Diet Recommendation: no restrictions on diet Diet Texture: Regular Texture Diet - Follow Up Care Current Providers and Referrals: Erika Zamarripa MD [Primary Care Provider] -
--- NOTE | 2017-11-27 14:15 | ASDISCHSUM ---
Discharge Information Plan Status:Home with No Needs Medically Cleared to Leave: Discharge Date:11/27/2017 12:10 PM CM D/C Disposition:Home, Routine, Self-Care ADT D/C Disposition:Home, Routine, Self-Care Projected Discharge Date:11/27/2017 12:10 PM Transportation at D/C:Family Discharge Delay Reason: Follow-Up Date:11/27/2017 12:10 PM Discharge Slot: Final Diagnosis: Placement Information Patient Contact Information Contact Name:CIELO Relationship: Address:[address] [place] [address] Work Phone: City:[facility] Phone: [facility]/Zip Code:[place] [address] Email: Financial Information Financial Class:Medicare Advantage Plans Primary Plan Desc:[facility] [employer] Primary Plan Number:[id number] Secondary Plan Desc: Secondary Plan Number: Assessment Information [facility] CM Progress Note CM Note CM Note Notes: Patient is POD # L shoulder hemiarthroplasty. He has a history of COPD and uses O2 at home. He lives with his and is normally independent. No therapies have been ordered, and I assume he will discharge with no needs. Case Management available if that changes. Date Signed: 11/27/2017 09:43 AM Electronically Signed By:Mare Benz RN Intervention Information
== END 2017-11-27 12:10 | disposition home or self-care (01) | DRG 483 ==
LOC: F3N 05:46 → F2N 12:36
PROVIDERS: ADMIT Orthopaedic Surgery; ATTEND Orthopaedic Surgery
PROC: 0RRK0JZ Replacement of Left Shoulder Joint with Synthetic Substitute, Open Approach (ICD-10-PCS; principal; 2017-11-26 07:15)
DX: M19.012 Primary osteoarthritis, left shoulder (principal); I10 Essential (primary) hypertension; G47.33 Obstructive sleep apnea (adult) (pediatric); I48.2 Chronic atrial fibrillation; K21.9 Gastro-esophageal reflux disease without esophagitis; Z96.611 Presence of right artificial shoulder joint; Z96.653 Presence of artificial knee joint, bilateral
CPT/HCPCS: C1713; J0171; J0690; J1100; J1885; J1940; J2370; J2405; J2704; J2795; J3010

== ENCOUNTER 2018-02-04 10:45 | Day surgery (SDC) | payer OTHER ==
--- NOTE | 2018-02-03 20:05 | GHP ---
[f rep st] HISTORY AND PHYSICAL DATE OF ADMISSION: 02/04/2018 CURRENT COMPLAINT: Left shoulder stiffness. HISTORY OF PRESENT ILLNESS: The patient is a 78-year-old male, previously undergone a left total sarina ulder replacement approximately 2 months ago. He has had significant issues with trying to regain ra nge of motion. He would like manipulation in order to speed the process. ALLERGIES: He lists no drug allergies. CURRENT MEDICATIONS: Include: 1. Amlodipine. 2. Clopidogrel. 3. Norvasc. PAST MEDICAL HISTORY: Medical problems include: 1. Arthritis. 2. Asthma. 3. Gout. 4. Osteoporosis. PAST SURGICAL HISTORY: Includes: 1. Bilateral knee surgeries. 2. Bilateral shoulder hemiarthroplasty. SOCIAL HISTORY: He is a former smoker and uses moderate alcohol. PHYSICAL EXAMINATION: HEENT: Pupils equal, round, and reactive to light. CHEST: Clear to ausculta tion. HEART: Regular rate and rhythm. ABDOMEN: Soft and nontender. EXTREMITIES: Left shoulder h as 30 degrees of abduction and forward flexion with external rotation to 0 degrees, internal rotation to 20 degrees. ASSESSMENT AND PLAN: Patient is status post left shoulder fibrosis. Plan is to take him to the oper ating room and undergo a left shoulder manipulation under anesthesia. /[id number]/MODL
[2018-02-04] MEDS ORDERED: MIDAZOLAM 2 MG/2 ML VIAL ONE (10:51)
[2018-02-04] MEDS ORDERED: ROPIVACAINE HCL 150 MG/30 ML INJ ONE (10:51)
[2018-02-04] MEDS ORDERED: fentaNYL 100 MCG/2 ML INJ ONE (10:51)
[2018-02-04] MEDS ORDERED: LR 1,000 ML IV ONE (10:53)
[2018-02-04] MEDS ORDERED: LIDOCAINE 1% 2 ML INJ ID PRN (10:53)
--- NOTE | 2018-02-04 11:25 | PDANEPAE ---
ANE History of Present Illness l frozen shoulder ANE Past Medical History - Cardiovascular History Hx Hypertension: Yes Hx Arrhythmias: Yes Hx Chest Pain: No Hx Coronary Artery / Peripheral Vascular Disease: Yes Hx CHF / Valvular Disease: No Hx Palpitations: No Cardiovascular History Comment: ATRIAL FIB PERMANENT. pcp monitors bp meds - Pulmonary History Hx COPD: Yes Hx Asthma/Reactive Airway Disease: No Hx Recent Upper Respiratory Infection: No Hx Oxygen in Use at Home: Yes Hx Sleep Apnea: No Sleep Apnea Screening Result - Last Documented: Positive Pulmonary History Comment: pineda triggers no dx - Neurologic History Hx Cerebrovascular Accident: No Hx Seizures: No Hx Dementia: No - Endocrine History Hx Diabetes: No - Renal History Hx Renal Disorders: No - Liver History Hx Hepatic Disorders: No - Neurological & Psychiatric Hx Hx Neurological and Psychiatric Disorders: Yes Neurological / Psychiatric History Comment: depression - Cancer History Hx Cancer: No - Congenital Disorder History Hx Congenital Disorders: No - GI History Hx Gastrointestinal Disorders: Yes Gastrointestinal History Comment: GERD - Other Health History Other Health History: none - Chronic Pain History Chronic Pain: No - Surgical History Prior Surgeries: CARDIAC CATH 09/2017. R SHOULDER REPLACEMENT. bilateral tka's ANE Review of Systems Review of Systems: - Exercise capacity METS (RN): 3 METS ANE Patient History - Allergies Allergies/Adverse Reactions: No Known Allergies Allergy (Verified 02/12/17 13:27) - Home Medications Home Medications: RX: Multivitamins [Multivitamin (*)] 09/26/17 [Last Taken 01/28/18] RX: Tetrahydrozoline 0.05% [Visine (*)] 11/26/17 [Last Taken 02/03/18] RX: amLODIPine BESYLATE [Norvasc 10 mg (*)] 11/26/17 [Last Taken 02/03/18] RX: Acetaminophen [Tylenol 325mg (*)] 01/31/18 [Last Taken Unknown] RX: Aspirin [Aspirin 81mg (*)] 01/31/18 [Last Taken 01/28/18] RX: Carboxymethylcellulose 1% [Refresh Celluvisc (*)] 01/31/18 [Last Taken ] RX: Hydrocodone/APAP 5/325 [[place] 5/325 (*)] 01/31/18 [Last Taken 02/03/18] RX: Nitroglycerin [Nitrostat 0.4 mg (*)] 01/31/18 [Last Taken 12/17/17] RX: traMADol [Ultram 50 mg (*)] 01/31/18 [Last Taken 01/25/18] - NPO status NPO Since - Liquids (Date): 02/04/18 NPO Since - Liquids (Time): 10:00 NPO Since - Solids (Date): 02/03/18 NPO Since - Solids (Time): 23:00 - Smoking Hx Smoking Status: Former smoker - Family Anes Hx Family Hx Anesthesia Complications: none ANE Labs/Vital Signs - Vital Signs Blood Pressure: 139/91 Heart Rate: 95 Respiratory Rate: 18 O2 Sat (%): 93 Height: 170.18 cm Weight: 79.379 kg ANE Physical Exam - Airway Neck exam: FROM Mallampati Score: Class 2 Mouth exam: normal dental/mouth exam - Pulmonary Pulmonary: reduced air movement, rhonchi - Cardiovascular Cardiovascular: regular rate and rhythym - ASA Status ASA Status: IV ANE Anesthesia Plan Regional Anesthesia: supraclavicular BP NB Total IV Anesthesia: Yes
[2018-02-04] MEDS ORDERED: PROPOFOL 200 MG/20 ML VIAL ONE (12:12)
[2018-02-04] MEDS ORDERED: NALOXONE HCL 0.4 MG/ML INJ IVP PRN (12:33)
[2018-02-04] MEDS ORDERED: HYDROCODONE/APAP 5/325 TAB PO PRN (12:35)
--- NOTE | 2018-02-04 12:35 | POSTOPPROG ---
Post Op Note Date of Operation: 02/04/18 Surgeon: Lisa Mccain Anesthesia: IV Sedation Pre-op Diagnosis: l shoulder fibrosis Procedure: l shoulder opal Inf/Abcess present in the surg proc area at time of surgery?: No
--- NOTE | 2018-02-04 12:44 | POSTANESTH ---
Post Anesthetic Evaluation Cardiovascular Status: Normal, Stable Respiratory Status: Similar to Pre-op Cond. Level of Consciousness/Mental Status: Can Participate in Eval Pain Control: Adequate, Prn Tx Ordered Nausea/Vomiting Control: Adequate, Prn Tx Ordered Complications Possibly Related to Anesthesia: None Noted
[2018-02-04 12:53] VITALS: TEMP 97.7
--- NOTE | 2018-02-04 13:03 | GOP ---
[f rep st] OPERATIVE REPORT DATE OF OPERATION: 02/04/2018 SURGEON: Lisa Mccain MD ANESTHESIA: By supraclavicular block per surgeon's request as well as IV sedation. PREOPERATIVE DIAGNOSIS: Left shoulder fibrosis. POSTOPERATIVE DIAGNOSIS: Left shoulder fibrosis. PROCEDURE PERFORMED: Left shoulder manipulation under anesthesia. FINDINGS: INDICATIONS: This is a 78-year-old male with left shoulder stiffness after having undergone a left s houlder hemiarthroplasty, and notes that he gets some tenderness at the extremes of range of motion a nd therefore limits his range of motion. He would like a manipulation in order to have a quick gain in range of motion. DESCRIPTION OF PROCEDURE: The patient was brought to the operating room after the left side had been identified as correct side by the patient, nurse, and physician. Once in the operating room, he was given a supraclavicular block and then placed on IV sedation using propofol. Once adequately sedate d, he had the arm manipulated gaining approximately 150 degrees of forward flexion, 45 degrees of ext ernal rotation, with internal rotation to 70 degrees. Pictures were taken in order to show the range of motion, and have them forwarded to his physical therapist in order to give them an idea of how fa r his shoulder is capable of going. Once completed, he was allowed to wake up, and sent to recovery room in good condition. /[id number]/MODL
[2018-02-04 13:16] VITALS: BP 127/66; PULSE 69; RESP 14; O2SAT 92
[2018-02-04] MEDS ORDERED: KETOROLAC 15 MG/1 ML SDV IVP SCH (18:00)
== END 2018-02-04 13:55 | disposition home or self-care (01) ==
LOC: FSGY 10:45
PROVIDERS: ATTEND Orthopaedic Surgery
PROC: 0RNKXZZ Release Left Shoulder Joint, External Approach (ICD-10-PCS; principal; 2018-02-04 11:45)
DX: M25.612 Stiffness of left shoulder, not elsewhere classified (principal)
CPT/HCPCS: J2250; J2704; J2795; J3010

== ENCOUNTER 2018-08-22 15:06 | Emergency (ER) | payer OTHER ==
--- NOTE | 2018-08-22 15:37 | EDPHY ---
H & P Time Seen by Provider: 08/22/18 15:19 HPI/ROS: HPI Scalp laceration, mechanical fall. 78-year-old male by private vehicle with his . This patient was pushing his garbage can to move it in another direction when it slipped out from underneath him. He fell forward and thinks that he hit his anterior mid scalp on the garbage can lid. He sustained a large midline elliptical scalp laceration. He states that he did fall to the ground. He denies any loss of consciousness. He has no neck pain. Denies any extremity pain. Denies headache. He has not been confused. No nausea or vomiting or other complaints. His triage list of medications included aspirin but he states he does not take this. No other anticoagulant or antiplatelet medications. ROS: Constitutional: No fever, no chills. No weakness. Eyes: No discharge. No changes in vision. ENT: No sore throat. No nasal congestion or rhinorrhea. Respiratory: No cough. No shortness of breath. Cardiac: No chest pain, no palpitations. Gastrointestinal: No abdominal pain, no vomiting, no diarrhea. Genitourinary: No hematuria. No dysuria or increased frequency with urination. Musculoskeletal: No back pain. No neck pain. No myalgias or arthralgias. Skin: No rashes. As above. Neurological: No headache. No focal weakness or altered sensation. Past medical history: Partially deaf, congestive heart failure, hypertension, COPD, pneumonia, hyperlipidemia, intermittent atrial fibrillation, gout, GERD, anxiety, arthritis, anemia, depression, alcohol abuse. Social history: Nonsmoker. Here with his . As above. Physical Exam: General Appearance: Alert, no distress. This patient is responding to questions appropriately and in full sentences. This patient appears well- hydrated and well-nourished. Head: Normocephalic atraumatic. Except for a midline elliptical flap scalp laceration measuring 6-7 cm. Inside of this flap there is also a linear skin tear avulsion type laceration measuring 3 cm. No bony step-off or deformity noted on palpation over this area. Face: Facial bones are stable on palpation. Eyes: Pupils equal and round and reactive to light, no pallor or injection. No lid erythema or edema. ENT, Mouth: Mucous membranes moist. Dentition is intact. No malocclusion of the jaw. No tongue lacerations or abrasions. Pharynx is clear. The bilateral nasal canals are clear. No septal hematoma. Respiratory: There are no retractions, lungs are clear to auscultation with good air movement bilaterally. Chest wall is stable to AP and lateral palpation. Cardiovascular: Regular rate and rhythm. No murmur. Gastrointestinal: Abdomen is soft and nontender, no masses, bowel sounds normal. Neurological: Motor sensory function is intact. Cranial nerves are normal. Cerebellar function intact. Skin: Warm and dry, no rashes. No lacerations, abrasions or contusions. Musculoskeletal: Neck is supple and nontender. The trachea is midline. No midline cervical, thoracic, lumbar or sacral tenderness on palpation. No flank tenderness on palpation. Extremities are symmetrical, full range of motion. All joints in the bilateral upper and bilateral lower extremities range without pain or impingement. No tenderness on palpation of the long bones in the bilateral upper and bilateral lower extremities. Psychiatric: No agitation. No depression. Database: EKG: Imaging: Procedures: Procedure: Laceration repair. Verbal consent was obtained from the patient. The 6 cm elliptical flap laceration on the mid forehead at the scalp line was anesthetized in the usual fashion. The wound was irrigated, draped and explored to its base with a gloved finger. There were no deep structures involved. No foreign body was identified. The wound was repaired with 11, 4.0 Prolene sutures placed in interrupted fashion. The wound repair was tolerated well and there were no complications. The procedure was performed by myself. Procedure: Laceration repair. Verbal consent was obtained from the patient. The 3 cm skin tear avulsion laceration on the mid upper forehead was anesthetized in the usual fashion. The wound was irrigated, draped and explored to its base with a gloved finger. There were no deep structures involved. No foreign body was identified. The wound was repaired with 5, 4.0 Prolene sutures placed in interrupted fashion. The wound repair was tolerated well and there were no complications. The procedure was performed by myself. Emergency department course: Triage vital signs reviewed. Suture repair as above. Wound care discussed with the patient. His trauma evaluation is otherwise unremarkable. He displays no signs or symptoms of significant head injury. He feels comfortable going home with his . Follow-up and return to emergency department precautions reviewed. All of his questions were answered. He was discharged from the emergency department in good condition. Differential Diagnosis: The differential diagnosis on this patient includes but is not limited to midline scalp laceration. Skull fracture, cervical spine injury, epidural hematoma, subdural hematoma, traumatic subarachnoid hemorrhage, other significant traumatic injury unlikely. This represents a partial list of diagnoses considered. These considerations are based on history, physical exam , past history, reassessment and diagnostic testing. Smoking Status: Former smoker Constitutional: Initial Vital Signs Temperature (C) 37.0 C 08/22/18 15:17 Heart Rate 79 08/22/18 15:17 Respiratory Rate 20 08/22/18 15:17 Blood Pressure 138/78 H 08/22/18 15:17 O2 Sat (%) 91 L 08/22/18 15:17 O2 Delivery Mode Nasal Cannula O2 (L/minute) 4 Allergies/Adverse Reactions: No Known Allergies Allergy (Verified 08/22/18 15:17) Home Medications: Medication Instructions Recorded Multivitamins [Multivitamin (*)] 09/26/17 Tetrahydrozoline 0.05% [Visine (*)] 11/26/17 amLODIPine BESYLATE [Norvasc 10 mg 11/26/17 (*)] Acetaminophen [Tylenol 325mg (*)] 01/31/18 Aspirin [Aspirin 81mg (*)] 01/31/18 Carboxymethylcellulose 1% [Refresh 01/31/18 Celluvisc (*)] Hydrocodone/APAP 5/325 [[place] 01/31/18 5/325 (*)] Nitroglycerin [Nitrostat 0.4 mg 01/31/18 (*)] traMADol [Ultram 50 mg (*)] 01/31/18 Departure - Departure Disposition: Home, Routine, Self-Care Clinical Impression: Fall from ground level, Scalp laceration Condition: Good Instructions: Care For Your Stitches (ED), Laceration (ED), Head Injury (ED) Additional Instructions: Read and follow provided instructions. Follow-up with your primary care physician on Saturday for re-evaluation and wound check. Continue taking your medication as prescribed. Stitches should be removed in 10-12 days. Return to the emergency department for worsening headache, confusion, nausea or vomiting, neck pain or other serious concerns. Referrals: Erika Zamarripa MD [Primary Care Provider] - As per Instructions
[2018-08-22 17:08] VITALS: BP 164/86
== END 2018-08-22 17:19 | disposition home or self-care (01) ==
LOC: CED 15:06
PROC: 0HQ1XZZ Repair Face Skin, External Approach (ICD-10-PCS; principal; 2018-08-22)
DX: S01.01XA Laceration without foreign body of scalp, initial encounter (principal); W19.XXXA Unspecified fall, initial encounter